=== PATIENT | male | born 1950 | race Caucasian/White ===

== ENCOUNTER → 2016-10-03 | Outpatient (CLI) | payer OTHER ==
[~2016-10-03] MED LIST: CITALOPRAM HBR40 MG PO; COREG 12.5MG12.5 MG PO; GLUCOPHAGE 500500 MG PO; IMDUR ER TAB 6060 MG PO; K-DUR TAB 20 M20 MEQ PO; LASIX40 MG PO; LIORESAL TAB 1010 MG PO; LIPITOR80 MG PO; LOTENSIN TAB 1010 MG PO; ZYLOPRIM 100 M100 MG PO
[2016-10-03 20:06] LABS: HEMOGLOBIN 14.2 gm/dl (14.0-17.5); RED BLOOD COUNT 5.09 M/UL (4.20-5.50)
== END ==
LOC: RAD 19:19 → LAB 19:19
PROVIDERS: Registered Nurse
DX: J20.9 Acute bronchitis, unspecified (principal); R50.9 Fever, unspecified
CPT/HCPCS: 36415; 71020; 85025

== ENCOUNTER 2020-07-26 16:18 | Emergency (ER) | payer MEDICARE ==
[~2020-07-26 16:18] MED LIST changes: +LODINE CAP 300300 MG PO; +MEDROL4 MG PO; +VIBRAMYCIN100 MG PO; +Voltaren Gel 1 % TOP
[2020-07-26 17:47] LABS: HEMOGLOBIN 12.6 gm/dl (14.0-17.5); RED BLOOD COUNT 4.5 M/UL (4.20-5.50); WHITE BLOOD COUNT 6.3 K/UL (4.5-11.0)
[2020-07-26 19:03] LABS: BUN/CREATININE RATIO 15 (0-10)
[2020-07-26] MEDS ORDERED: LASIX20 MG PO (20:33)
[2020-07-26] MEDS ORDERED: POTASSIUM CHLO20 ME1 PO (20:33)
== END 2020-07-26 21:05 | disposition home or self-care (01) ==
LOC: ER1 16:18
PROVIDERS: Emergency Medicine
DX: J60 Coalworker's pneumoconiosis (principal); J44.9 Chronic obstructive pulmonary disease, unspecified; I50.9 Heart failure, unspecified; Z20.822 Contact with and (suspected) exposure to COVID-19
CPT/HCPCS: 71045; 80053; 82550; 82553; 83874; 83880; 84484; 85025; 96374; 96375; 99285; J1100; J1940; U0002

== ENCOUNTER 2021-02-05 22:09 | Emergency (ER) | payer MEDICARE ==
[~2021-02-05 22:09] MED LIST changes: +LASIX20 MG PO; +POTASSIUM CHLO20 ME1 PO
[2021-02-06] MEDS ORDERED: BACTRIM DS TAB1 EACH PO (00:03)
[2021-02-06] MEDS ORDERED: CEPHALEXIN500 MG PO (00:03)
== END 2021-02-06 00:03 | disposition home or self-care (01) ==
LOC: ER1 22:09
DX: L03.116 Cellulitis of left lower limb (principal); E11.9 Type 2 diabetes mellitus without complications; E78.5 Hyperlipidemia, unspecified; I10 Essential (primary) hypertension
CPT/HCPCS: 99283

== ENCOUNTER 2021-04-19 12:30 | Inpatient (IN) | payer MEDICARE ==
[~2021-04-19] VITALS: Ht 175.3 cm; Wt 156.0 kg
[~2021-04-19 12:30] MED LIST changes: +BACTRIM DS TAB1 EACH PO; +BENAZEPRIL HCL20 MG PO; +CEPHALEXIN500 MG PO; -LOTENSIN TAB 1010 MG PO; +PREDNISONE10 M1 PO
[2021-04-19 14:05] LABS: HEMOGLOBIN 13.9 gm/dl (14.0-17.5); RED BLOOD COUNT 4.85 M/UL (4.20-5.50); WHITE BLOOD COUNT 9.2 K/UL (4.5-11.0)
[2021-04-19 14:34] LABS: BUN/CREATININE RATIO 17 (0-10)
[2021-04-19] MEDS ORDERED: AUGMENTIN 875-1 EACH PO (17:41)
[2021-04-19] MEDS ORDERED: BREZTRI AEROS10.7 GM INH (17:42)
[2021-04-19] MEDS ORDERED: IPRAT-ALBUT 0.5-3 ML INH (17:42)
[2021-04-19] MEDS ORDERED: MUPIROCIN22 GM TP (17:43)
[2021-04-19] MEDS ORDERED: METFORMIN HCL500 MG PO (17:44)
[2021-04-19] MEDS ORDERED: CRESTOR20 MG PO (17:45)
[2021-04-19] MEDS ORDERED: LORATADINE10 MG PO (17:45)
[2021-04-19] MEDS ORDERED: FUROSEMIDE20 MG PO (17:46)
[2021-04-19] MEDS ORDERED: CARVEDILOL12.5 MG PO (17:46)
[2021-04-19] MEDS ORDERED: ISOSORBIDE MONO60 MG PO (17:49)
[2021-04-19] MEDS ORDERED: PAROXETINE HCL10 MG PO (17:49)
[2021-04-19] MEDS ORDERED: HYDROCHLOROTHIA25 MG PO (17:50)
[2021-04-19] MEDS ORDERED: MELOXICAM7.5 MG PO (17:50)
[2021-04-19] MEDS ORDERED: PROTONIX 40 MG40 M1 PO (17:51)
[2021-04-19] MEDS ORDERED: POTASSIUM CHLO20 ME1 PO (17:52)
[2021-04-19] MEDS ORDERED: VITAMIN D325 MCG PO (17:53)
[2021-04-19] MEDS ORDERED: ASPIRIN81 MG PO (17:54)
[2021-04-19] MEDS ORDERED: CANDICIDAL CAP1 EACH PO (17:54)
[2021-04-20 03:15] LABS: HEMOGLOBIN 14.2 gm/dl (14.0-17.5); RED BLOOD COUNT 4.96 M/UL (4.20-5.50)
[2021-04-20 03:42] LABS: BUN/CREATININE RATIO 18 (0-10)
--- NOTE | 2021-04-20 10:50 | NUR ---
10:30 DR CAMPOS HERE TO DO VANDANA, PT THROAT SPRAYED, 10:32 2MG VERSED GIVEN VIA 20G LEFT AC FOLLOWED BY 10CC NS FLUSH, 10:37 1MG VERSED GIVEN VIA IV, 10:36 PROCEDURE STARTED, PT TOLERATING WELL, VS REMAIN STABLE, 10:43 PROCEDURE ENDED, VSS AT THIS TIME, WILL CONTINUE TO MONITOR.
--- NOTE | 2021-04-20 13:30 | NUR ---
PT TAKEN TO ATHLETIC INSTRUCTOR FOR ABLASSION
[2021-04-21 02:51] LABS: HEMOGLOBIN 12.8 gm/dl (14.0-17.5); RED BLOOD COUNT 4.49 M/UL (4.20-5.50); WHITE BLOOD COUNT 8.2 K/UL (4.5-11.0)
[2021-04-21 03:28] LABS: BUN/CREATININE RATIO 18 (0-10)
[2021-04-22 02:11] LABS: HEMOGLOBIN 12.4 gm/dl (14.0-17.5); RED BLOOD COUNT 4.38 M/UL (4.20-5.50); WHITE BLOOD COUNT 7.3 K/UL (4.5-11.0)
[2021-04-23 06:40] LABS: HEMOGLOBIN 12.9 gm/dl (14.0-17.5); RED BLOOD COUNT 4.47 M/UL (4.20-5.50); WHITE BLOOD COUNT 7.8 K/UL (4.5-11.0)
[2021-04-23 07:04] LABS: BUN/CREATININE RATIO 17 (0-10)
[2021-04-24 03:37] LABS: HEMOGLOBIN 12.5 gm/dl (14.0-17.5); RED BLOOD COUNT 4.36 M/UL (4.20-5.50); WHITE BLOOD COUNT 7.1 K/UL (4.5-11.0)
[2021-04-24 04:32] LABS: BUN/CREATININE RATIO 19 (0-10)
[2021-04-25 04:08] LABS: HEMOGLOBIN 12.4 gm/dl (14.0-17.5); RED BLOOD COUNT 4.36 M/UL (4.20-5.50); WHITE BLOOD COUNT 7.5 K/UL (4.5-11.0)
[2021-04-25 04:27] LABS: BUN/CREATININE RATIO 16 (0-10)
[2021-04-26 02:36] LABS: HEMOGLOBIN 12.3 gm/dl (14.0-17.5); RED BLOOD COUNT 4.3 M/UL (4.20-5.50); WHITE BLOOD COUNT 6.9 K/UL (4.5-11.0)
[2021-04-26 02:55] LABS: BUN/CREATININE RATIO 18 (0-10)
[2021-04-26] MEDS ORDERED: LASIX40 MG PO (10:05)
[2021-04-26] MEDS ORDERED: CARVEDILOL25 MG PO (10:05)
[2021-04-26] MEDS ORDERED: ELIQUIS 5 MG TAB5 MG PO (10:08)
[2021-04-26] MEDS ORDERED: OMNICEF 300 MG300 MG PO (10:12)
== END 2021-04-26 13:15 | disposition home health service (06) | DRG 273 ==
LOC: ER1 12:30 → PROG CARE 16:33 → CDU 16:33 → PROG CARE 18:29
PROVIDERS: Internal Medicine; ADMIT Internal Medicine
PROC: 02583ZZ Destruction of Conduction Mechanism, Percutaneous Approach (ICD-10-PCS; principal; 2021-04-20)
PROC: 02K83ZZ Map Conduction Mechanism, Percutaneous Approach (ICD-10-PCS; 2021-04-20)
PROC: 4A023FZ Measurement of Cardiac Rhythm, Percutaneous Approach (ICD-10-PCS; 2021-04-20)
PROC: 4A0234Z Measurement of Cardiac Electrical Activity, Percutaneous Approach (ICD-10-PCS; 2021-04-20)
DX: I48.92 Unspecified atrial flutter (principal); J96.21 Acute and chronic respiratory failure with hypoxia; I50.33 Acute on chronic diastolic (congestive) heart failure; J18.9 Pneumonia, unspecified organism; J44.1 Chronic obstructive pulmonary disease with (acute) exacerbation; N17.9 Acute kidney failure, unspecified; Z68.43 Body mass index [BMI] 50.0-59.9, adult; Z20.822 Contact with and (suspected) exposure to COVID-19; I25.10 Atherosclerotic heart disease of native coronary artery without angina pectoris; K21.9 Gastro-esophageal reflux disease without esophagitis; E11.9 Type 2 diabetes mellitus without complications; I11.0 Hypertensive heart disease with heart failure; G47.33 Obstructive sleep apnea (adult) (pediatric); E78.5 Hyperlipidemia, unspecified; E66.01 Morbid (severe) obesity due to excess calories; Z96.611 Presence of right artificial shoulder joint; M10.9 Gout, unspecified; I25.2 Old myocardial infarction; Z95.1 Presence of aortocoronary bypass graft; Z85.46 Personal history of malignant neoplasm of prostate; Z90.49 Acquired absence of other specified parts of digestive tract; Z95.5 Presence of coronary angioplasty implant and graft; Z79.899 Other long term (current) drug therapy; Z79.84 Long term (current) use of oral hypoglycemic drugs; Z82.49 Family history of ischemic heart disease and other diseases of the circulatory system; Z79.82 Long term (current) use of aspirin
CPT/HCPCS: 36415; 36600; 71045; 80048; 80053; 81001; 82550; 82553; 82803; 82962; 83036; 83605; 83735; 83874; 83880; 84439; 84443; 84484; 85025; 85027; 86140; 93005; 93312; 93320; 93609; 93620; 94640; 94664; 94760; 96365; 96366; 96367; 96372; 96375; 96376; 97110; 97161; 97530-GP-CQ; 99152; 99153; 99285; C1730; C1733; C1766; G0378; J0456; J0696; J1200; J1644; J1650; J1940; J2250; J2270; J3010; J7030; J7040; J7050; U0002

== ENCOUNTER → 2021-08-04 | Outpatient (CLI) | payer MEDICARE ==
[~2021-08-04] MED LIST changes: +ASPIRIN81 MG PO; +AUGMENTIN 875-1 EACH PO; +BREZTRI AEROS10.7 GM INH; +CANDICIDAL CAP1 EACH PO; +CARVEDILOL12.5 MG PO; +CARVEDILOL25 MG PO; +CRESTOR20 MG PO; +ELIQUIS 5 MG TAB5 MG PO; +FUROSEMIDE20 MG PO; +HYDROCHLOROTHIA25 MG PO; +IPRAT-ALBUT 0.5-3 ML INH; +ISOSORBIDE MONO60 MG PO; +LORATADINE10 MG PO; +MELOXICAM7.5 MG PO; +METFORMIN HCL500 MG PO; +MUPIROCIN22 GM TP; +OMNICEF 300 MG300 MG PO; +PAROXETINE HCL10 MG PO; +PROTONIX 40 MG40 M1 PO; +VITAMIN D325 MCG PO
== END ==
LOC: CATH 10:00 → EDSTATUS 10:00 → CATH 10:19
DX: R55 Syncope and collapse (principal); L00 Staphylococcal scalded skin syndrome
CPT/HCPCS: 93270